=== PATIENT | male | born 1975 | race Caucasian/White ===

== ENCOUNTER 2017-12-05 14:35 | Emergency (ER) | payer MEDICAID ==
[2017-12-05] MEDS ORDERED: GLUCAGON HCL 1 MG VIAL IVP ONE (15:21)
[2017-12-05] MEDS ORDERED: NS 1,000 ML IV ONE (15:35)
--- NOTE | 2017-12-05 15:38 | EDPHY ---
H & P Stated Complaint: STARTED coughing while eating a lunch, now coughing up water Time Seen by Provider: 12/05/17 14:57 HPI/ROS: 41 yo M developmentally disabled , non verbal, with hx of swallowing difficulties requiring EGD several times in the past presents after choking on his food at lunch time, this was about 3 hours ago and since that time he has not been able to pass water. ros unable secondary to clinical condition Source: Family Exam Limitations: Physical impairment, Other - Personal History Current Tetanus Diphtheria and Acellular Pertussis (TDAP): Yes Tetanus Vaccine Date: 2007 - Medical/Surgical History Hx Asthma: No Hx Chronic Respiratory Disease: No Hx Diabetes: No Hx Cardiac Disease: No Hx Renal Disease: No Hx Cirrhosis: No Hx Alcoholism: No Hx HIV/AIDS: No Hx Splenectomy or Spleen Trauma: No Other PMH: Developmentally delayed/lives with host family. ID,Seizure disorder, autism,CP,asthma,dysphagia,seasonal allergies,onychomycosis,posterior tibial tendon dysfunction,poor weight gain,gait instability,swallow dysfunction. - Family History Significant Family History: No pertinent family hx - Social History Smoking Status: Never smoked Alcohol Use: None Drug Use: None - Physical Exam Exam: 41 yo M in no respiratroy distress, occasional coughing noted at,nc neck no stridor lungs cta heart rrr abd nabs ext no cce Constitutional: Initial Vital Signs Temperature (C) 36.0 C 12/05/17 14:46 Heart Rate 93 12/05/17 14:46 Respiratory Rate 18 12/05/17 14:46 Blood Pressure 125/72 H 12/05/17 14:46 O2 Sat (%) 94 12/05/17 14:46 O2 Delivery Mode Room Air Allergies/Adverse Reactions: Beef Containing Products [beef] Allergy (Verified 12/05/17 14:46) Diarrhea coconut oil Allergy (Verified 12/05/17 14:46) Abdominal Cramping corn Allergy (Verified 12/05/17 14:46) Abdominal Pain egg [eggs] Allergy (Verified 12/05/17 14:46) Abdominal Cramping levetiracetam [From Keppra] Allergy (Verified 12/05/17 14:46) lorazepam [From Ativan] Allergy (Verified 12/05/17 14:46) Milk Containing Products [dairy] Allergy (Verified 12/05/17 14:46) Hives Pork/Porcine Containing Products [pork] Allergy (Verified 12/05/17 14:46) Diarrhea soy Allergy (Verified 12/05/17 14:46) Abdominal Cramping whey Allergy (Verified 12/05/17 14:46) Abdominal Pain GLUTEN Allergy (Uncoded 12/05/17 14:46) Abdominal Cramping Home Medications: Medication Instructions Recorded Cholecalciferol Vit D3 [Vitamin D3 2,000 units PO DAILY 07/24/15 2000 units] Divalproex Sodium 125 mg PO BID 07/24/15 Folic Acid [FA-8] 0.8 mg PO DAILY 07/24/15 Herbals/Supplements -Info Only 1 ea PO DAILY 07/24/15 Ipratropium/Albuterol [Combivent 1 inh IH QID PRN 07/24/15 Respimat Inhal [place](*)] Melatonin [Melatonin 3 MG (*)] 3 mg PO HS 07/24/15 Multivitamins [Multivitamin (*)] 1 each PO DAILY 07/24/15 Nutritional Supplement [Resource 237 ml PO TID 07/24/15 2.0] Topiramate [Topamax 100MG (*)] 100 mg PO BID 07/24/15 lamoTRIgine [Lamictal] 200 mg PO BID 07/24/15 oxyCODONE/APAP 5/325 [Percocet 1 tab PO Q4 PRN 07/24/15 5/325 (*)] risperiDONE [Risperdal 0.25mg (*)] 0.25 mg PO BID 07/24/15 traZODone [traZODONE 100MG (*)] 200 mg PO HS 07/24/15 Acetaminophen [Tylenol 325mg (*)] 325 - 650 mg PO Q4 PRN #0 tab 07/26/15 Acetaminophen [Tylenol 325mg (*)] 325 - 650 mg PO Q4 PRN #0 tab 07/26/15 Albuterol [Proventil Neb] 3 ml IH TID PRN #0 deyvial 07/26/15 oxyCODONE IR [Oxycodone Ir (*)] 5 - 15 mg PO Q3 PRN #30 tab 07/26/15 Medical Decision Making ED Course/Re-evaluation: pt evaluated for esophageal food impaction has had this happen several times in the past given glucagon 1 mg ivp, initially no obvious response and morphine 4 mg ivp shortly after morphine , pt now able to tolerate fluids without difficulty also given one liter normal saline Imp Esophageal food impaction, resolved Plan Discharge home Differential Diagnosis: Differential diagnosis considered but not limited to Acute pharyngitis, esophageal food impaction, esophageal spasm, esophageal stricture - Data Points Medications Given: Discontinued Medications Glucagon (Glucagon) 1 mg IVP EDNOW ONE Stop: 12/05/17 15:22 Last Admin: 12/05/17 15:36 Dose: 1 mg Sodium Chloride (Ns) 1,000 mls @ 0 mls/hr IV ONCE ONE PRN Reason: Wide Open Stop: 12/05/17 15:36 Last Admin: 12/05/17 15:45 Dose: 1,000 mls Morphine Sulfate (Morphine) 4 mg IVP EDNOW ONE Stop: 12/05/17 15:37 Last Admin: 12/05/17 15:45 Dose: 4 mg Departure - Departure Disposition: Home, Routine, Self-Care Clinical Impression: Esophageal obstruction due to food impaction Condition: Good Instructions: Esophageal Foreign Body (ED) Referrals: Juventino Ku DO [Primary Care Provider] - As per Instructions
[2017-12-05 16:32] VITALS: BP 119/70
== END 2017-12-05 16:31 | disposition home or self-care (01) ==
LOC: CED 14:35
DX: T18.120A Food in esophagus causing compression of trachea, initial encounter (principal); R13.19 Other dysphagia; F89 Unspecified disorder of psychological development; Z86.59 Personal history of other mental and behavioral disorders
CPT/HCPCS: 96374; J1610; J2270

== ENCOUNTER 2017-12-08 03:20 | Emergency (ER) | payer MEDICAID ==
--- NOTE | 2017-12-08 03:32 | EDPHY ---
H & P Time Seen by Provider: 12/08/17 03:32 HPI/ROS: HPI CHIEF COMPLAINT: "Possible choking Episode" HISTORY OF PRESENT ILLNESS: 42-year-old male, history of developmenta delay, non verbal, recently seen here 3 days ago for a choking episode and will still to be esophageal food impaction improved after morphine and IV fluids. He presents at 3:30 a.m. In the morning for what appears to be describes a choking episode much earlier in the evening around 9:00 p.m.. The caretakers at bedside states that he was eating spaghetti around 9:00 p.m. And began coughing and gagging. This eventually subsided. At 10:00 p.m. He took a nap. They went to check in on him and noticed that he had a lot of mucus and secretions all over him or his clothes and on his chest, they decided to give him a shower. The decided to bring him here in the emergency room at 3:30 a.m. In the morning. They drove by private vehicle apparently on the ride over he was having "a meltdown"screaming and crying. Upon arrival here they report he is back to his baseline than normal. He is not coughing. He is active and happy and playful in the room. He is giggling and laughing. They state that this is normal for him. This is his normal mental state. Upon arrival to the emergency room it is noted the patient has normal vital signs, no respiratory distress. No hypoxia. No stridor. He is laughing and playing in the room. Caretakers say he appears normal Now. On exam he has good breath sounds bilaterally, I do not appreciate any wheezing or stridor. Past Medical History:Developmental delay, seizures, dysphagia, GERD Past Surgical History: No recent surgery Social History: Lives locally. Fabrication And Assembly Supervisor at bedside. Family History: Noncontributory ROS REVIEW OF SYSTEMS: Limited due to patient's developmental delay. Exam Constitutional developmental delay comma triage nursing summary reviewed, vital signs reviewed, awake/alert. Eyes normal conjunctivae and sclera, EOMI, PERRLA. HENT normal inspection, atraumatic, moist mucus membranes, no epistaxis, neck supple/ no meningismus, no raccoon eyes. Respiratory No stridor, clear bilaterally, good air movement, no coughing, no choking, clear to auscultation bilaterally, no wheezing Cardiovascular rate normal, regular rhythm, no murmur, no edema, distal pulses normal. Gastrointestinal soft, non-tender, no rebound, no guarding, normal bowel sounds, no distension, no pulsatile mass. Neurologic awake and alert, normal neurological exam for this patient, sitting in a chair rocking back and fourth laughing Differential Diagnosis: Includes but is not limited to in a particular order choking episode, coughing, aspiration, GERD Medical Decision Making: Plan for this patient this patient is active and laughing in the room, good air movement no stridor no wheezing, in no acute distress, at his neurological baseline in caretakers bedside state the appears normal now. They describe a possible choking episode earlier however back to baseline at this point. The caretakers would like to try to give him something to drink to see how he does. I think this is reasonable. Will p.o. Challenge to make sure he can tolerate fluids and keep them down. At this point I do not feel that he needs any blood work drawn or IV establishment or imaging. Re-evaluation: 0352: Caretakers at bedside report that he drank a whole cup of water without difficulty. No choking. They report that he is completely normal. They would like to be discharged. I feel that this is reasonable however if they noticed he is having trouble breathing, fever, worsening cough, choking or any questions or concerns about him they should bring him back to the emergency room. They have agreed for this. 0405AM: Patient re-evaluated has been monitored here for over 40 minutes, and no coughing, drank water. Doing well. No wheezing, no stridor, no hypoxia, care- takers at bedside feel comfortable taking him home. They understand to retun if worse, fever, vomiting, coughing, trouble breathing. Source: Patient, Family, Old records - Personal History Tetanus Vaccine Date: 2007 - Medical/Surgical History Hx Asthma: No Hx Chronic Respiratory Disease: No Hx Diabetes: No Hx Cardiac Disease: No Hx Renal Disease: No Hx Cirrhosis: No Hx Alcoholism: No Hx HIV/AIDS: No Hx Splenectomy or Spleen Trauma: No Other PMH: Developmentally delayed/lives with host family. ID,Seizure disorder, autism,CP,asthma,dysphagia,seasonal allergies,onychomycosis,posterior tibial tendon dysfunction,poor weight gain,gait instability,swallow dysfunction. - Social History Smoking Status: Never smoked Constitutional: Initial Vital Signs Temperature (C) 36.6 C 12/08/17 03:29 Heart Rate 75 12/08/17 03:29 Respiratory Rate 18 12/08/17 03:29 Blood Pressure 104/66 12/08/17 03:29 O2 Sat (%) 93 12/08/17 03:29 O2 Delivery Mode Room Air Allergies/Adverse Reactions: gluten Allergy (Verified 12/08/17 03:31) reports Abdominal Cramping levetiracetam [From Keppra] Allergy (Verified 12/08/17 03:31) Unsure of reaction lorazepam [From Ativan] Allergy (Verified 12/08/17 03:31) Reports seizures Home Medications: Medication Instructions Recorded Albuterol 12/08/17 Bacopa 12/08/17 Coq10 12/08/17 Depakote 12/08/17 Folic Acid 12/08/17 Herbals/Supplements -Info Only 12/08/17 Lamictal 12/08/17 Levocarnitine 12/08/17 Magnesium Glycinate 12/08/17 Multivitamins 12/08/17 Ranitidine HCl 12/08/17 Risperdal 12/08/17 Topiramate 12/08/17 Vitamin D3 12/08/17 traZODone 12/08/17 Departure - Departure Disposition: Home, Routine, Self-Care Clinical Impression: Cough Condition: Good Instructions: Acute Cough (ED) Additional Instructions: 1. Return emergency room if you have any worsening symptoms includes cough, fever, wheezing. Any trouble breathing. Vomiting. Referrals: Patient,NotPresent [Primary Care Provider] - As per Instructions
[2017-12-08 03:33] VITALS: BP 104/66
== END 2017-12-08 04:11 | disposition home or self-care (01) ==
LOC: CED 03:20
DX: R05 Cough (principal); R13.19 Other dysphagia; F89 Unspecified disorder of psychological development; Z86.59 Personal history of other mental and behavioral disorders

== ENCOUNTER → 2018-01-28 | Emergency (ER) | payer MEDICAID ==
--- NOTE | 2018-01-28 11:35 | EDPHY ---
H & P Stated Complaint: rash on right foot Time Seen by Provider: 01/28/18 11:24 HPI/ROS: 42-year-old male presents with his father for rash to his right foot of unknown duration. No fevers no chills. Review of systems Patient unable to give review of systems secondary to physical limitations, patient does not speak Source: Family Exam Limitations: Physical impairment - Personal History Current Tetanus Diphtheria and Acellular Pertussis (TDAP): Yes Tetanus Vaccine Date: 2007 - Medical/Surgical History Hx Asthma: No Hx Chronic Respiratory Disease: No Hx Diabetes: No Hx Cardiac Disease: No Hx Renal Disease: No Hx Cirrhosis: No Hx Alcoholism: No Hx HIV/AIDS: No Hx Splenectomy or Spleen Trauma: No Other PMH: Developmentally delayed/lives with host family. ID,Seizure disorder, autism,CP,asthma,dysphagia,seasonal allergies,onychomycosis,posterior tibial tendon dysfunction,poor weight gain,gait instability,swallow dysfunction. - Family History Significant Family History: No pertinent family hx - Social History Smoking Status: Never smoked Alcohol Use: None Drug Use: None - Physical Exam Exam: 42-year-old male awake, afebrile, nontoxic appearance Atraumatic normocephalic No respiratory distress Right foot 2 x 3 cm area of erythema with overlying skin desquamation, no drainage no increased warmth no lymphangitic streaks Constitutional: Initial Vital Signs Temperature (C) 36.4 C 01/28/18 11:33 Heart Rate 76 01/28/18 11:33 Respiratory Rate 16 01/28/18 11:33 Blood Pressure 109/63 01/28/18 11:33 O2 Sat (%) 96 01/28/18 11:33 O2 Delivery Mode Room Air Allergies/Adverse Reactions: gluten Allergy (Verified 12/08/17 03:31) reports Abdominal Cramping levetiracetam [From Keppra] Allergy (Verified 12/08/17 03:31) Unsure of reaction lorazepam [From Ativan] Allergy (Verified 12/08/17 03:31) Reports seizures Home Medications: Medication Instructions Recorded Albuterol 12/08/17 Bacopa 12/08/17 Coq10 12/08/17 Depakote 12/08/17 Folic Acid 12/08/17 Herbals/Supplements -Info Only 12/08/17 Lamictal 12/08/17 Levocarnitine 12/08/17 Magnesium Glycinate 12/08/17 Multivitamins 12/08/17 Ranitidine HCl 12/08/17 Risperdal 12/08/17 Topiramate 12/08/17 Vitamin D3 12/08/17 traZODone 12/08/17 Medical Decision Making ED Course/Re-evaluation: Patient seen and evaluated for right foot rash Impression Right foot friction abrasions/blister No evidence of infection Plan Bacitracin ointment Surgical foot shoe Differential Diagnosis: Differential diagnosis considered but not limited to Abrasion, blister, cellulitis Departure - Departure Disposition: Home, Routine, Self-Care Clinical Impression: Blister of foot, right Condition: Good Instructions: Abrasion (ED), Blister (ED) Additional Instructions: Follow up with Dr Ku if not improving. Referrals: Juventino Ku DO [Primary Care Provider] - As per Instructions Stand Alone Forms: Statement of Treatment
[2018-01-28 11:37] VITALS: BP 109/63
== END | disposition home or self-care (01) ==
LOC: CED 11:08
DX: S90.821A Blister (nonthermal), right foot, initial encounter (principal); X58.XXXA Exposure to other specified factors, initial encounter; F89 Unspecified disorder of psychological development; F84.0 Autistic disorder; G40.909 Epilepsy, unspecified, not intractable, without status epilepticus
CPT/HCPCS: L4386

== ENCOUNTER 2018-06-19 15:30 | Emergency (ER) | payer MEDICAID ==
--- NOTE | 2018-06-19 16:02 | EDPHY ---
H & P Stated Complaint: [employer] 0800 fell in shower this am and hit rt side of head, seizure activity Time Seen by Provider: 06/19/18 15:37 HPI/ROS: This morning around 8:00 a.m. While in the shower with a math and physics instructor this patient had a seizure described as head dropping in going limp. He fell and struck his face against the bathtub but had no loss of consciousness. He did have brief epistaxis and swelling to the nose the concerns math and physics instructor for potential fractured nose. He has been slightly less active than usual today since the fall but otherwise maintains normal behavior per math and physics instructor-Cherri (a nurse), his acute care registered nurse who provides today's history. She also reports that over the past week he has had significant increase in number of seizures. Prior to this he had had a seizure and more than a year. In terms of the social history it is notable that the patient had a new math and physics instructor this week. There has been no recent changes in his seizure medication dosages or the medications themselves and they report compliance with these medications. ROS: Constitutional: No fevers recently Neuro: No LOC with the head injury today. HEENT: As per HPI. No other complaints Pulmonary: No coughing Cardiovascular no complaints GI: The patient had diarrhea for more than a week that resolved 1 week ago and now has normal bowel movements. No vomiting. : No complaints 10 point review of symptoms is performed and otherwise negative with exception of pertinent positives and negatives listed in HPI and ROS Source: RN/MD Exam Limitations: Physical impairment (The patient is nonverbal due to developmental delay. A nurse math and physics instructor provides history) - Personal History Tetanus Vaccine Date: 2007 - Medical/Surgical History Hx Asthma: No Hx Chronic Respiratory Disease: No Hx Diabetes: No Hx Cardiac Disease: No Hx Renal Disease: No Hx Cirrhosis: No Hx Alcoholism: No Hx HIV/AIDS: No Hx Splenectomy or Spleen Trauma: No Other PMH: Developmentally delayed/lives with host family. ID,Seizure disorder, autism,CP,asthma,dysphagia,seasonal allergies,onychomycosis,posterior tibial tendon dysfunction,poor weight gain,gait instability,swallow dysfunction. - Social History Smoking Status: Never smoked Alcohol Use: None Drug Use: None Additional Social History: He lives in the assisted living facility with full-time math and physics instructor. - Physical Exam Exam: General Appearance: Facies consistent with developmental delay, Alert, no distress. Eyes: Pupils equal and round no pallor or injection. Pupils are 4 mm equal and reactive to light. Extraocular motions are intact ENT,-nose there is swelling asymmetric toward the left. There is dried epistaxis in the areas but no septal hematoma. He is able to move air through both nares. He seems to have tenderness the nasal bridge but no crepitance is appreciated. Mouth: Appreciate no dental trauma or intraoral lacerations. Ears: External canals and TMs are clear bilaterally with no hemotympanum Respiratory: There are no retractions, lungs are clear to auscultation. No chest wall tenderness Cardiovascular: Regular rate and rhythm. Gastrointestinal: Abdomen is soft and nontender, no masses, bowel sounds normal. Neurological: He is alert. Cranial nerves 2 through 12 are grossly intact. Maintains 5/5 strength throughout all extremities. Skin: Warm and dry, no rashes. Musculoskeletal: Neck is supple nontender. Extremities are symmetrical, full range of motion. Psychiatric: Mood and affect is baseline for him per his math and physics instructor DIFFERENTIAL DIAGNOSIS: After history and physical exam differential diagnosis was considered for seizure, minor head injury, nasal fracture, nasal contusion, metabolic abnormality, nontherapeutic drug levels, anemia Constitutional: Initial Vital Signs Temperature (C) 36.5 C 06/19/18 15:37 Heart Rate 70 06/19/18 15:37 Respiratory Rate 16 06/19/18 15:37 Blood Pressure 108/70 06/19/18 15:37 O2 Sat (%) 100 06/19/18 15:37 O2 Delivery Mode Room Air Allergies/Adverse Reactions: gluten Allergy (Verified 06/19/18 15:37) reports Abdominal Cramping levetiracetam [From Keppra] Allergy (Verified 06/19/18 15:37) Unsure of reaction lorazepam [From Ativan] Allergy (Verified 06/19/18 15:37) Reports seizures Home Medications: Medication Instructions Recorded Albuterol 12/08/17 Bacopa 12/08/17 Coq10 12/08/17 Depakote 12/08/17 Folic Acid 12/08/17 Herbals/Supplements -Info Only 12/08/17 Lamictal 12/08/17 Levocarnitine 12/08/17 Magnesium Glycinate 12/08/17 Multivitamins 12/08/17 Ranitidine HCl 12/08/17 Risperdal 12/08/17 Topiramate 12/08/17 Vitamin D3 12/08/17 traZODone 12/08/17 Divalproex [Depakote Sprinkle 125 250 mg PO BID #30 cap 06/19/18 MG (*)] Medical Decision Making ED Course/Re-evaluation: Blood is drawn and sent for labs. Counseled math and physics instructor regarding the plan to hold on CT imaging given lack of significant change in behavior no LOC with his minor head injury. I spoke with Dr. Meade, Pt's neurologist at [facility] who suggests increasing depakote to 250 mg bid from current depakote 125 mg bid. I counseled patient's father regarding this is agreement with this treatment plan. For his suspected nasal fracture clinically the treated with Tylenol and ice as needed. While he had a minor head injury do not think he has significant risk of intracranial bleed given lack of any focal findings on exam bright affect with smiles in the room no LOC. I suspect that he had increased seizures recently due to his diarrhea with decreased absorption of his medications. His diarrhea has since resolved. - Data Points Laboratory Results: 06/19/18 06/19/18 06/19/18 16:45 16:45 16:22 POC Sodium 144 mEq/L mEq/L (135-145) POC Potassium 3.6 mEq/L mEq/L (3.3-5.0) POC Chloride 101.0 mEq/L mEq/L (97-110) POC Total CO2 29 mEq/L mEq/L (22-31) POC BUN 26 mg/dL H mg/dL (7-23) POC Creatinine < 0.2 mg/dL L mg/dL (0.7-1.3) POC Glucose 90 mg/dL mg/dL (70-100) POC Calcium 10.2 mg/dL mg/dL (8.5-10.4) Valproic Acid 14.9 mcg/mL L mcg/mL (50.0-150.0) Lamotrigine Pending Medications Given: Discontinued Medications Acetaminophen (Tylenol) 650 mg PO EDNOW ONE Stop: 06/19/18 16:25 Last Admin: 06/19/18 17:01 Dose: Not Given Acetaminophen (Tylenol 160mg/5ml Oral Liquid) 650 mg PO EDNOW ONE Stop: 06/19/18 16:32 Last Admin: 06/19/18 16:37 Dose: 650 mg Point of Care Test Results: CBC CBC Collection Date 06/19/18 CBC Collection Time 16:15 WBC 8.08 RBC 5.24 HGB 15.5 HCT 45.1 PLT 205 Neut # 4.75 Neut 58.8 LYMPH # 2.10 LYMPH 26.0 MCV 86.1 Chemistry 06/19/18 16:22 POC Sodium 144 mEq/L mEq/L (135-145) POC Potassium 3.6 mEq/L mEq/L (3.3-5.0) POC Chloride 101.0 mEq/L mEq/L (97-110) POC Total CO2 29 mEq/L mEq/L (22-31) POC BUN 26 mg/dL H mg/dL (7-23) POC Creatinine < 0.2 mg/dL L mg/dL (0.7-1.3) POC Glucose 90 mg/dL mg/dL (70-100) POC Calcium 10.2 mg/dL mg/dL (8.5-10.4) Departure - Departure Disposition: Home, Routine, Self-Care Clinical Impression: Seizure Minor head injury without loss of consciousness Qualifiers: Encounter type: initial encounter Qualified Code(s): S09.90XA - Unspecified injury of head, initial encounter Nasal fracture Qualifiers: Encounter type: initial encounter Fracture type: closed Qualified Code(s): S02.2XXA - Fracture of nasal bones, initial encounter for closed fracture Condition: Good Instructions: Epilepsy (ED) Additional Instructions: Diagnosis: Seizure 2. Minor head injury without LOC 3. Nasal fracture Plan: Tylenol for discomfort to nose if needed Increase Depakote dose to 250 mg 2 times a day and keep other medications at current dose. Call Dr. Meade, neurologist arrange follow-up appointment for further evaluation Return to the emergency department for any worsening despite the treatment plan. Referrals: Juventino Ku DO [Primary Care Provider] - As per Instructions Prescriptions: Divalproex [Depakote Sprinkle 125 MG (*)] 250 mg PO BID #30 cap
[2018-06-19] MEDS ORDERED: ACETAMINOPHEN 325 MG TAB PO ONE (16:24)
[2018-06-19] MEDS ORDERED: ACETAMINOPHEN 160 MG/5 ML UDCUP PO ONE (16:31)
[2018-06-19 19:38] VITALS: BP 98/50
== END 2018-06-19 17:45 | disposition home or self-care (01) ==
LOC: CED 15:30
DX: S02.2XXA Fracture of nasal bones, initial encounter for closed fracture (principal); S09.90XA Unspecified injury of head, initial encounter; G40.909 Epilepsy, unspecified, not intractable, without status epilepticus; F84.0 Autistic disorder; Z79.899 Other long term (current) drug therapy; W18.2XXA Fall in (into) shower or empty bathtub, initial encounter; Y93.E1 Activity, personal bathing and showering; Y92.121 Bathroom in nursing home as the place of occurrence of the external cause
CPT/HCPCS: 80048-ER; 80175-90; 85025-QW-ER; 99283-ER